=== PATIENT | female | born 1985 | race African-American/Black ===

== ENCOUNTER 2019-01-12 13:13 | Emergency (ER) | payer MEDICAID ==
[~2019-01-12] VITALS: Ht 175.3 cm; Wt 82.1 kg
[2019-01-12 13:20] VITALS: BP 109/70; Ht 175.3 cm; Wt 82.1 kg
== END 2019-01-12 13:50 | disposition home or self-care (01) ==
LOC: ED 13:13
DX: N39.0 Urinary tract infection, site not specified (principal)

== ENCOUNTER 2019-01-30 16:58 | Emergency (ER) | payer MEDICAID ==
[~2019-01-30] VITALS: Ht 175.3 cm; Wt 81.8 kg
[2019-01-30 17:06] VITALS: Ht 175.3 cm; Wt 81.8 kg
[2019-01-30 17:36] VITALS: BP 113/84
== END 2019-01-30 17:36 | disposition home or self-care (01) ==
LOC: ED 16:58
DX: R21 Rash and other nonspecific skin eruption (principal); K13.0 Diseases of lips

== ENCOUNTER 2019-06-07 19:40 | Emergency (ER) | payer MEDICAID ==
[~2019-06-07] VITALS: Ht 175.3 cm; Wt 85.3 kg
[2019-06-07 19:43] VITALS: Ht 175.3 cm; Wt 85.3 kg
[2019-06-07 20:14] LABS: BASOPHIL % 0.4 % (0-2); PLATELET COUNT 235 x10^3mcL (130-400); RED CELL DISTRIBUTION WIDTH 13.1 % (11.5-14.5)
[2019-06-08 02:43] VITALS: BP 103/69
== END 2019-06-08 02:43 | disposition home or self-care (01) ==
LOC: ED 19:40
DX: O26.891 Other specified pregnancy related conditions, first trimester (principal); N93.9 Abnormal uterine and vaginal bleeding, unspecified; Z3A.01 Less than 8 weeks gestation of pregnancy
CPT/HCPCS: 36415

== ENCOUNTER 2020-03-02 11:28 | Emergency (ER) | payer MEDICAID ==
[~2020-03-02] VITALS: Ht 175.3 cm; Wt 85.7 kg
[2020-03-02 11:36] VITALS: Ht 175.3 cm; Wt 85.7 kg
[2020-03-02 11:51] LABS: microscopic required? NO
[2020-03-02 12:17] LABS: UA SPECIFIC GRAVITY >=1.030 (1.005-1.035); urine erythrocyte NEGATIVE (NEGATIVE)
[2020-03-02 14:22] VITALS: BP 113/59
== END 2020-03-02 14:22 | disposition home or self-care (01) ==
LOC: ED 11:28
PROVIDERS: Emergency Medicine
DX: N76.0 Acute vaginitis (principal); Z90.89 Acquired absence of other organs
CPT/HCPCS: 87491; 87591